=== PATIENT | male | born 1985 | race African-American/Black ===

== ENCOUNTER 2017-08-05 13:03 | Emergency (ER) | payer MEDICARE, OTHER ==
[~2017-08-05] VITALS: Ht 177.8 cm; Wt 93.0 kg
[2017-08-05 13:49] VITALS: BP 133/90
[2017-08-05] MEDS ORDERED: KEPPRA1000 MG ORAL (13:50)
[2017-08-05] MEDS ORDERED: Ketorolac 30mg Inj IM ONE (14:00)
[2017-08-05] MEDS ORDERED: DiphenhydrAMINE 50mg/ml Inj IM ONE (14:00)
[2017-08-05] MEDS ORDERED: Solu-MEDROL 125mg Inj IM ONE (14:00)
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
[2017-08-05] MEDS ORDERED: FIORICET1 EA ORAL (16:19)
[2017-08-05] MEDS ORDERED: NAPROXEN500 M1 ORAL (16:19)
[2017-08-05] MEDS ORDERED: ROBAXIN-750750 MG PO (16:19)
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
[2017-08-05 16:38] VITALS: BP 141/90
== END 2017-08-05 16:38 | disposition home or self-care (01) ==
LOC: EMR 13:58
DX: G44.209 Tension-type headache, unspecified, not intractable (principal); Z87.820 Personal history of traumatic brain injury; J45.909 Unspecified asthma, uncomplicated; Z86.69 Personal history of other diseases of the nervous system and sense organs
CPT/HCPCS: 70450; 96372; 99284; J1200; J1885; J2930

== ENCOUNTER 2020-01-11 20:56 | Emergency (ER) | payer MEDICARE, OTHER ==
[~2020-01-11] VITALS: Ht 175.3 cm; Wt 93.0 kg
[~2020-01-11 20:56] MED LIST: FIORICET1 EA ORAL; KEPPRA1000 MG ORAL; NAPROXEN500 M1 ORAL; ROBAXIN-750750 MG PO
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
[2020-01-11] MEDS ORDERED: Morphine Sulfate 4mg/ml Inj (IV USE ONLY) ONE (21:27)
[2020-01-11] MEDS ORDERED: Bacitracin Oint UD TOPIC ONE (21:30)
[2020-01-11] MEDS ORDERED: Ketorolac 30mg Inj IM ONE (21:30)
[2020-01-11] MEDS ORDERED: Morphine Sulfate 2mg/ml Inj(IV/IM USE ONLY) IM ONE (21:30)
[2020-01-11] MEDS ORDERED: NORCO 5-325 TA1 EAC1 ORAL (22:19)
[2020-01-11] MEDS ORDERED: IBUPROFEN600 M1 ORAL (22:19)
[2020-01-11 22:30] VITALS: BP 138/88
--- NOTE | 2020-01-11 22:30 | NUR ---
ER DISCHARGE NOTE: Patient is cleared to be discharged per ERMD, pt is aox4, on room air, with stable vital signs. pt was given dc and prescription instructions, pt was able to verbalize understanding, pt id band removed without complications. pt is able to ambulate with steady gait. pt took all belongings. splint was applied to right ankle, pt given crutches with crutch training and return demonstrates proper use and verbaly recalls safety measures, pt with mother to drive.
--- NOTE | 2020-01-12 14:01 | Diagnostic Imaging Report ---
Indications: Right knee pain Technique: Three views of the right knee Comparison: None Findings: No acute fractures. No dislocations. Joint spaces are preserved. No radiopaque foreign body. Normal mineralization. Impression: No acute process
--- NOTE | 2020-01-12 14:07 | Diagnostic Imaging Report ---
Indication: Pain, trauma Technique: 3 views of the right ankle Comparison: none Findings: There is an oblique fracture of the distal fibular diaphysis. This is distracted by approximately 5 mm. There is widening of the medial ankle mortise. No definite tibial fracture demonstrated. Impression: Positive for distal fibular fracture Widening of the medial ankle mortise, concerning for ligamentous injury This agrees with the preliminary interpretation reported by the emergency room physician in the electronic medical record
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
== END 2020-01-11 22:30 | disposition home or self-care (01) ==
LOC: EDUNIT# 20:56 → EDBD 20:56 → EMR 21:29
DX: S82.831A Other fracture of upper and lower end of right fibula, initial encounter for closed fracture (principal); G40.909 Epilepsy, unspecified, not intractable, without status epilepticus; V19.9XXA Pedal cyclist (driver) (passenger) injured in unspecified traffic accident, initial encounter; Y92.9 Unspecified place or not applicable
CPT/HCPCS: 29515; 73562; 73610; 96372; 99284; J1885; J2270